=== PATIENT | female | born 1980 | race Two or more races ===

== ENCOUNTER 2016-12-24 12:10 | Inpatient (IN) | payer SELFPAY ==
[~2016-12-24] VITALS: Ht 172.7 cm; Wt 99.8 kg
[2016-12-24] MEDS ORDERED: ONDANSETRON PF 4 MG/2 ML VIAL. IV ONE (12:45)
[2016-12-24 12:58] LABS: BASO # 0.1 x10^3/uL (0.0-0.2); BASO % 1 % (0-3); EOS % 3 % (0-3); HEMATOCRIT 38.3 % (36.0-47.0); HEMOGLOBIN 12.1 g/dL (12.0-15.5); LYMPH # 1.9 x10^3/uL (1.0-4.8); LYMPH % 17 % (24-48); MEAN CORPUSCULAR HEMOGLOBIN 23 pg (25-35); MEAN CORPUSCULAR HGB CONC 32 g/dL (31-37); MEAN CORPUSCULAR VOLUME 72 fL (79-100); MONO % 5 % (0-9); NEUT % 74 % (31-73); PLATELET COUNT 287 x10^3/uL (140-400); RED BLOOD COUNT 5.36 x10^6/uL (3.50-5.40); RED CELL DISTRIBUTION WIDTH 16.7 % (11.5-14.5)
[2016-12-24 13:07] LABS: INR 1.2 (0.8-1.1); PROTHROMBIN TIME PATIENT 14.6 SEC (11.7-14.0)
--- NOTE | 2016-12-24 13:10 | EKG ---
[facility] [address] [place] [address] Test Date: 2016-12-24 Test Time: 12:22:14 Pat Name: ARELY LEAHY Department: Room: Gender: F Paradi Operator: : 1980 Requested By: SHAY GONZALES Order Number: [id number] Reading MD: Measurements Intervals [place] Rate: 83 P: 0 AL: 168 QRS: 32 QRSD: 82 T: 24 QT: 378 QTc: 445 Interpretive Statements SINUS RHYTHM NO SPECIFIC ECG ABNORMALITIES RI6.01 No previous ECG available for comparison
[2016-12-24 13:14] LABS: CALCIUM 8.8 mg/dL (8.5-10.1); CREATININE 0.6 mg/dL (0.6-1.0); GFR 114.4; POTASSIUM 3.9 mmol/L (3.5-5.1)
[2016-12-24 13:17] LABS: ALBUMIN 3.7 g/dL (3.4-5.0); TOTAL BILIRUBIN 0.6 mg/dL (0.2-1.0); TOTAL PROTEIN 7.5 g/dL (6.4-8.2)
[2016-12-24] MEDS: fentaNYL PF VIAL 100 MCG/2 ML VIAL IV PRN ×6 (13:17→21:27)
[2016-12-24 13:20] LABS: CKMB MASS 0.8 ng/mL (0.0-3.6)
--- NOTE | 2016-12-24 13:31 | RAD ---
Indication pain. Nausea vomiting. Grayscale imaging was performed. Examination was targeted to the right upper quadrant. The examination is limited secondary to patient body habitus. There is increased attenuation of the ultrasound beam by the liver compatible with fatty infiltration. A focal mass lesion is not seen in the visualized liver.. The patient was tender in the right upper quadrant during the exam (positive 's sign). There is gallbladder wall thickening and some suggested pericholecystic fluid. No definite cholelithiasis, however, was seen. The common bile duct was not identified as a discrete entity but significant intrahepatic bile duct dilatation is not suggested on this exam. The right kidney appeared grossly normal. The pancreas was largely obscured. Similarly the IVC was not well demonstrated. IMPRESSION: Limited study. There is suggested gallbladder wall thickening and some pericholecystic fluid. No definite cholelithiasis was seen. Acalculus cholecystitis is not excluded. Hepatic disease as a cause for the gallbladder wall thickening should also be considered.
[2016-12-24 13:35] LABS: BILIRUBIN,URINE NEGATIVE (NEG); GLUCOSE,URINE NEGATIVE (NEG); NITRITE,URINE NEGATIVE (NEG); PH,URINE 6.5; PROTEIN,URINE NEGATIVE (NEG-TRACE); UROBILINOGEN,URINE 0.2 mg/dL (0.2 mg/dL)
--- NOTE | 2016-12-24 13:46 | RAD ---
Portable chest, 12/24/2016: History: Epigastric pain, shortness of breath The heart is at the upper limits of normal in size. The pulmonary vascularity is normal. A small dense nodule in the right lower chest is probably a granuloma. No pulmonary infiltrates are seen. There is no evidence of pleural fluid. IMPRESSION: No acute cardiopulmonary abnormality is detected.
[2016-12-24 13:49] LABS: BACTERIA,URINE FEW /HPF (0-FEW); SQUAMOUS EPITHELIAL CELL,UR OCC /LPF
[2016-12-24 13:50] LABS: YEAST,URINE PRESENT /HPF
[2016-12-24 14:19] LABS: HYPOCHROMIA SLIGHT; MICROCYTOSIS SLIGHT; PLT ESTIMATE ADEQUATE (ADEQUATE); POLYCHROMASIA SLIGHT
[2016-12-24 14:24] VITALS: BP 122/71
--- NOTE | 2016-12-24 15:38 | PHYS DOC ---
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 It hurts to take a breath and she feels like she can't breathe. She' s had nausea, no vomiting. Denies fever or chills. She's never had pain like this before. She denies injury. Patient had surgery in [place] for "tumors", they do not know where that was, further questioning by ED nurse thought the surgery was for ovary cyst. We are unclear whether the patient had hysterectomy. She denies that. She denies history of appendectomy or cholecystectomy. The patient speaks Colombian, her daughter speaks Yoruba and translates at the bedside. PCP none Review of Systems Review of Systems Constitutional: Denies fever or chills [] Respiratory: As in history of present illness Cardiovascular: As in history of present illness GI: As in history of present illness : Denies dysuria or hematuria [] Musculoskeletal: Denies back pain or joint pain [] Integument: Denies rash or skin lesions [] Neurologic: Denies headache, focal weakness or sensory changes [] Current Medications Current Medications Current Medications Medications (Trade) Dose Ordered Sig/Gabbi Start Time Stop Time Status Last Admin Dose Admin Fentanyl Citrate (Fentanyl 2ml Vial) 50 mcg PRN Q15MIN PRN 12/24/16 12:45 12/24/16 18:38 DC 12/24/16 15:14 50 MCG Ondansetron HCl (Zofran) 4 mg 1X ONCE 12/24/16 12:45 12/24/16 12:51 DC 12/24/16 13:16 4 MG Allergies Allergies Allergies Coded Allergies Type Severity Reaction Last Updated Verified Penicillins Allergy Intermediate rash 12/24/16 Yes Physical Exam Physical Exam Constitutional: Well developed, well nourished, appears uncomfortable, tearful, clutching her epigastrium HENT: Normocephalic, atraumatic, bilateral external ears normal, oropharynx moist, no oral exudates, nose normal. [] Eyes: conjunctiva normal, no discharge. [] Neck: Normal range of motion, no stridor. [] Cardiovascular:Heart rate regular rhythm, no murmur [] Lungs & Thorax: Bilateral breath sounds clear to auscultation [] Abdomen: Epigastric and right upper quadrant tenderness to palpation. Positive 's. No palpable masses, no distention, no peritoneal signs. Skin: Warm, dry, no erythema, no rash. [] Extremities: No tenderness, no cyanosis, no clubbing, ROM intact, no edema. [] Neurologic: Alert and oriented X 3, normal motor function, normal sensory function, no focal deficits noted. [] Current Patient Data Vital Signs Vital Signs Date Time Temp Pulse Resp B/P (MAP) Pulse Ox O2 Delivery O2 Flow Rate FiO2 12/24/16 15:20 67 132/74 (93) Room Air 22.0 12/24/16 15:14 20 98 12/24/16 14:24 97.5 97.5 Lab Values Laboratory Tests Test 12/24/16 12:25 12/24/16 12:31 12/24/16 13:21 White Blood Count 11.0 x10^3/uL (4.0-11.0) Red Blood Count 5.36 x10^6/uL (3.50-5.40) Hemoglobin 12.1 g/dL (12.0-15.5) Hematocrit 38.3 % (36.0-47.0) Mean Corpuscular Volume 72 fL (79-100) L Mean Corpuscular Hemoglobin 23 pg (25-35) L Mean Corpuscular Hemoglobin Concent 32 g/dL (31-37) Red Cell Distribution Width 16.7 % (11.5-14.5) H Platelet Count 287 x10^3/uL (140-400) Neutrophils (%) (Auto) 74 % (31-73) H Lymphocytes (%) (Auto) 17 % (24-48) L Monocytes (%) (Auto) 5 % (0-9) Eosinophils (%) (Auto) 3 % (0-3) Basophils (%) (Auto) 1 % (0-3) Neutrophils # (Auto) 8.2 x10^3uL (1.8-7.7) H Lymphocytes # (Auto) 1.9 x10^3/uL (1.0-4.8) Monocytes # (Auto) 0.5 x10^3/uL (0.0-1.1) Eosinophils # (Auto) 0.4 x10^3/uL (0.0-0.7) Basophils # (Auto) 0.1 x10^3/uL (0.0-0.2) Platelet Estimate Adequate (ADEQUATE) Large Platelets Occ Polychromasia Slight Hypochromasia Slight Microcytosis Slight Prothrombin Time 14.6 SEC (11.7-14.0) H Prothrombin Time INR 1.2 (0.8-1.1) H PTT 34 SEC (24-38) Sodium Level 140 mmol/L (136-145) Potassium Level 3.9 mmol/L (3.5-5.1) Chloride Level 105 mmol/L (98-107) Carbon Dioxide Level 26 mmol/L (21-32) Anion Gap 9 (6-14) Blood Urea Nitrogen 10 mg/dL (7-20) Creatinine 0.6 mg/dL (0.6-1.0) Estimated GFR (Cockcroft-Gault) 114.4 BUN/Creatinine Ratio 17 (6-20) Glucose Level 102 mg/dL (70-99) H Calcium Level 8.8 mg/dL (8.5-10.1) Total Bilirubin 0.6 mg/dL (0.2-1.0) Aspartate Amino Transferase (AST) 34 U/L (15-37) Alanine Aminotransferase (ALT) 55 U/L (14-59) Alkaline Phosphatase 159 U/L (46-116) H Creatine Kinase 89 U/L (26-192) Creatine Kinase MB (Mass) 0.8 ng/mL (0.0-3.6) Creatine Kinase MB Relative Index 0.9 % (0-4) Troponin I Quantitative < 0.017 ng/mL (0.000-0.055) Total Protein 7.5 g/dL (6.4-8.2) Albumin 3.7 g/dL (3.4-5.0) Albumin/Globulin Ratio 1.0 (1.0-1.7) Lipase 132 U/L (73-393) POC Urine HCG, Qualitative Hcg negative (Negative) Urine Color Yellow Urine Clarity Clear Urine pH 6.5 Urine Specific [place] 1.020 Urine Protein Negative mg/dL (NEG-TRACE) Urine Glucose (UA) Negative mg/dL (NEG) Urine Ketones (Stick) Negative mg/dL (NEG) Urine Blood Large (NEG) Urine Nitrite Negative (NEG) Urine Bilirubin Negative (NEG) Urine Urobilinogen Dipstick 0.2 mg/dL (0.2 mg/dL) Urine Leukocyte Esterase Small (NEG) Urine RBC 6-10 /HPF (0-2) Urine WBC 1-4 /HPF (0-4) Urine Squamous Epithelial Cells Occ /LPF Urine Amorphous Sediment Present /HPF Urine Bacteria Few /HPF (0-FEW) Urine Yeast Present /HPF Laboratory Tests 12/24/16 12:25 Laboratory Tests 12/24/16 12:25 EKG EKG EKG read by me. Sinus rhythm. Heart rate 83. There are no acute ST or T wave changes indicative of ischemia or infarction. No STEMI. 1222 [] Radiology/Procedures Radiology/Procedures One view portable chest x-ray read by me. No acute cardiopulmonary abnormality. Ultrasound of the right upper quadrant converted by the radiologist. Gallbladder wall thickening, pericholecystic fluid, no definite stones were seen. [] Course & Med Decision Making Course & Med Decision Making Pertinent Labs and Imaging studies reviewed. (See chart for details) 36-year-old lady with one day history of epigastric pain which causes her to feel like she has trouble breathing. Her pain and exam are suspicious for biliary colic. I discussed with the patient and her daughter that we will give her some pain and nausea medications, get some labs and ultrasound, they are agreeable to that plan. Ultrasound suspicious for acute cholecystitis which I believe the patient clinically has. She is in quite a bit of pain, required several doses of IV pain medicine. I recommended admission for further evaluation and patient is agreeable to that. I spoke with Dr. Mcgee, taking calls for hospital medicine. He will admit the patient. I wrote bridge orders. [] Dragon Disclaimer Dragon Disclaimer This electronic medical record was generated, in whole or in part, using a voice recognition dictation system. Departure Departure Impression: Primary Impression: Acute cholecystitis Disposition: ADMITTED INPATIENT Admitting Physician: Senthil Mcgee Condition: STABLE Referrals: NO PCP (PCP) SHAY GONZALES MD Dec 24, 2016 15:38
--- NOTE | 2016-12-24 16:29 | PDOC2 ---
GI CONSULT Reason For Consult: Acute cholecystitis HPI: HPI: 36 y/o Lithuanian-speaking female seen in the ER w/ pending admission. History a bit difficult w/ language barrier, daughter able to translate some. Acute onset of upper abdominal pain yesterday. No previous occurrences. Associated w / nausea, no vomiting. Worse after eating and w/ deep breaths. No fever, diarrhea, or constipation. ER documentation suggests pain radiates to back. US w/ GB wall thickening and pericholecystic fluid. On IV atbx. Denies daily medication use. PMH: PMH: ovarian cystectomy Social History: Smoke: No ALCOHOL: none ROS: GEN: Denies fevers, chills, sweats HEENT: Denies blurred vision, sore throat CV: Denies chest pain RESP: +SOA GI: Per HPI : Denies hematuria, dysuria ENDO: Denies weight changes NEURO: Denies confusion, dizziness MSK: Denies weakness, joint pain/swelling SKIN: Denies jaundice, pruritus Vitals: Vitals: Vital Signs Date Time Temp Pulse Resp B/P (MAP) Pulse Ox O2 Delivery O2 Flow Rate FiO2 12/24/16 15:14 20 98 12/24/16 14:26 Room Air 12/24/16 14:20 68 111/57 (75) 12/24/16 12:25 97.9 97.9 Labs: Labs: Laboratory Tests Test 12/24/16 12:25 12/24/16 12:31 12/24/16 13:21 White Blood Count 11.0 x10^3/uL (4.0-11.0) Red Blood Count 5.36 x10^6/uL (3.50-5.40) Hemoglobin 12.1 g/dL (12.0-15.5) Hematocrit 38.3 % (36.0-47.0) Mean Corpuscular Volume 72 fL (79-100) Mean Corpuscular Hemoglobin 23 pg (25-35) Mean Corpuscular Hemoglobin Concent 32 g/dL (31-37) Red Cell Distribution Width 16.7 % (11.5-14.5) Platelet Count 287 x10^3/uL (140-400) Neutrophils (%) (Auto) 74 % (31-73) Lymphocytes (%) (Auto) 17 % (24-48) Monocytes (%) (Auto) 5 % (0-9) Eosinophils (%) (Auto) 3 % (0-3) Basophils (%) (Auto) 1 % (0-3) Neutrophils # (Auto) 8.2 x10^3uL (1.8-7.7) Lymphocytes # (Auto) 1.9 x10^3/uL (1.0-4.8) Monocytes # (Auto) 0.5 x10^3/uL (0.0-1.1) Eosinophils # (Auto) 0.4 x10^3/uL (0.0-0.7) Basophils # (Auto) 0.1 x10^3/uL (0.0-0.2) Platelet Estimate Adequate (ADEQUATE) Large Platelets Occ Polychromasia Slight Hypochromasia Slight Microcytosis Slight Prothrombin Time 14.6 SEC (11.7-14.0) Prothromb Time International Ratio 1.2 (0.8-1.1) Activated Partial Thromboplast Time 34 SEC (24-38) Sodium Level 140 mmol/L (136-145) Potassium Level 3.9 mmol/L (3.5-5.1) Chloride Level 105 mmol/L (98-107) Carbon Dioxide Level 26 mmol/L (21-32) Anion Gap 9 (6-14) Blood Urea Nitrogen 10 mg/dL (7-20) Creatinine 0.6 mg/dL (0.6-1.0) Estimated GFR (Cockcroft-Gault) 114.4 BUN/Creatinine Ratio 17 (6-20) Glucose Level 102 mg/dL (70-99) Calcium Level 8.8 mg/dL (8.5-10.1) Total Bilirubin 0.6 mg/dL (0.2-1.0) Aspartate Amino Transf (AST/SGOT) 34 U/L (15-37) Alanine Aminotransferase (ALT/SGPT) 55 U/L (14-59) Alkaline Phosphatase 159 U/L (46-116) Creatine Kinase 89 U/L (26-192) Creatine Kinase MB (Mass) 0.8 ng/mL (0.0-3.6) Creatine Kinase MB Relative Index 0.9 % (0-4) Troponin I Quantitative < 0.017 ng/mL (0.000-0.055) Total Protein 7.5 g/dL (6.4-8.2) Albumin 3.7 g/dL (3.4-5.0) Albumin/Globulin Ratio 1.0 (1.0-1.7) Lipase 132 U/L (73-393) Bedside Urine HCG, Qualitative Hcg negative (Negative) Urine Color Yellow Urine Clarity Clear Urine pH 6.5 Urine Specific [place] 1.020 Urine Protein Negative mg/dL (NEG-TRACE) Urine Glucose (UA) Negative mg/dL (NEG) Urine Ketones (Stick) Negative mg/dL (NEG) Urine Blood Large (NEG) Urine Nitrite Negative (NEG) Urine Bilirubin Negative (NEG) Urine Urobilinogen Dipstick 0.2 mg/dL (0.2 mg/dL) Urine Leukocyte Esterase Small (NEG) Urine RBC 6-10 /HPF (0-2) Urine WBC 1-4 /HPF (0-4) Urine Squamous Epithelial Cells Occ /LPF Urine Amorphous Sediment Present /HPF Urine Bacteria Few /HPF (0-FEW) Urine Yeast Present /HPF Allergies: Coded Allergies: Penicillins (Verified Allergy, Intermediate, rash, 12/24/16) Medications: Current Medications Medications (Trade) Dose Ordered Sig/Gabbi Route PRN Reason Start Time Stop Time Status Last Admin Dose Admin Fentanyl Citrate (Fentanyl 2ml Vial) 50 mcg PRN Q15MIN PRN IV PAIN GREATER THAN 3/10 12/24/16 12:45 12/25/16 12:44 12/24/16 15:14 Ondansetron HCl (Zofran) 4 mg 1X ONCE IV 12/24/16 12:45 12/24/16 12:51 DC 12/24/16 13:16 Levofloxacin/ Dextrose 150 ml @ 100 mls/hr 1X ONCE IV 12/24/16 16:00 12/24/16 17:29 12/24/16 16:09 Imaging: Imaging: RUQ US 12/24/16 IMPRESSION: Limited study. There is suggested gallbladder wall thickening and some pericholecystic fluid. No definite cholelithiasis was seen. Acalculus cholecystitis is not excluded. Hepatic disease as a cause for the gallbladder wall thickening should also be considered. CXR 12/24/16 IMPRESSION: No acute cardiopulmonary abnormality is detected. PE: GEN: NAD HEENT: Atraumatic, PERRL LUNGS: CTAB anteriorly HEART: RRR ABD: epigastric to RUQ, some to LUQ, BS+, obese EXTREMITY: No edema SKIN: vertical scar below umbilicus NEURO/PSYCH: A & O 3 A/P: A/P: Upper abd pain and nausea -acute onset yesterday, worse w/ eating and deep breaths Abnormal abd US -gallbladder wall thickening and some pericholecystic fluid -LFTs and lipase okay except for mildly elevated Alk Phos -- Check PIPIDA w/o EF and consult surgery. WILLIAM ALCANTAR Dec 24, 2016 16:29
[2016-12-24 19:00] VITALS: BP 128/72
[2016-12-24] MEDS: AMINO AC 3%/ELECTROLYTE/GLYCER 1,000 ML IV SCH (19:42)
--- NOTE | 2016-12-24 21:48 | HP ---
ADMIT DATE: 12/24/2016 CHIEF COMPLAINT: Abdominal pain. HISTORY OF PRESENT ILLNESS: The patient is a pleasant 36-year-old female who presented with abdominal pain. We did some imaging. She has cholecystitis. We suspect this is from gallstones. I discussed the case with the ER physician. The patient is rating her pain at 9/10. She has associated nausea. We are going to admit the patient and consult Dr. Muro. PAST MEDICAL HISTORY: Overweight. ALLERGIES: None. FAMILY HISTORY: Hypertension. SOCIAL HISTORY: She does not drink, smoke or take drugs. MEDICATIONS: Reviewed, please refer to the MRAD. REVIEW OF SYSTEMS: GENERAL: No history of weight change, weakness or fevers. SKIN: No bruising, hair changes or rashes. EYES: No blurred, double or loss of vision. NOSE AND THROAT: No history of nosebleeds, hoarseness or sore throat. HEART: No history of palpitations, chest pain or shortness of breath on exertion. LUNGS: Denies cough, hemoptysis, wheezing or shortness of breath. GASTROINTESTINAL: She complains of abdominal pain. GENITOURINARY: No history of frequency, urgency, hesitancy or nocturia. NEUROLOGIC: Denies history of numbness, tingling, tremor or weakness. PSYCHIATRIC: No history of panic, anxiety or depression. ENDOCRINE: No history of heat or cold intolerance, polyuria or polydipsia. EXTREMITIES: Denies muscle weakness, joint pain, pain on walking or stiffness. PHYSICAL EXAMINATION: VITAL SIGNS: Temperature afebrile, pulse 67, respirations 18, blood pressure 144/90. GENERAL: She is alert, cooperative. Her family is present. HEART: Normal S1, S2. LUNGS: Clear. ABDOMEN: Soft. Decreased bowel sounds, tender in the epigastrium. EXTREMITIES: No edema. SKIN: No rashes. PSYCHIATRIC: She is anxious. VASCULAR: Good capillary refill. ENDOCRINE: No thyromegaly. LYMPHATICS: No cervical nodes. HEMATOPOIETIC: No bruising. LABORATORY DATA: Reviewed. ASSESSMENT AND PLAN: Symptomatic gallstones with cholecystitis. The patient has been admitted, will consult Dr. Muro. IV Levaquin, p.r.n. narcotics. We ordered a combination of Lortab and fentanyl, Procalamine at 75 an hour, frequent labs. PROGNOSIS: Guarded. NIAL Milton CHERY DO DR: Carlos JOB#: [id number] / [id number]
--- NOTE | 2016-12-24 22:05 | RAD ---
Hepatobiliary scan dated 12/24/2016. No comparison available. CLINICAL INDICATION: Mid abdominal pain. FINDINGS: Dedicated hepatobiliary scan performed after the administration of 5.0 mCi of technetium 99m Choletec. Imaging acquired at 5 minute frames for total of 60 minutes. Prompt uptake of tracer throughout the hepatic parenchyma on the initial frame. Biliary tree is visualized at 6 minutes. There is emptying into proximal small bowel loops at 10 minutes. The gallbladder is not definitely visualized. There is some tracer accumulation near the chelsey hepatis on the final images which probably represents reflux into proximal duodenum. IMPRESSION: 1. Gallbladder is not clearly identified, nonspecific. Although this could represent acute cholecystitis, contracted gallbladder or gallbladder filled with stones or sludge are also possible. Recommend correlation with ultrasound. If indicated, delayed imaging could be performed. Electronically signed by: Cameron Marques MD (12/24/2016 10:03 PM)
[2016-12-24 23:00] VITALS: BP 104/62
[2016-12-25] VITALS (16 sets, daily range): BP systolic 86–121; BP diastolic 47–74
[2016-12-25] MEDS: fentaNYL PF VIAL 100 MCG/2 ML VIAL IV PRN (08:48)
[2016-12-25] MEDS: AMINO AC 3%/ELECTROLYTE/GLYCER 1,000 ML IV SCH ×2 (08:48→20:15)
[2016-12-25] MEDS: HYDROcodone/APAP 5/325MG 1 TAB TABLET PO PRN ×3 (09:39→23:05)
[2016-12-25] MEDS ORDERED: DEXAMETHASONE SOD PHOS 20 MG/5 ML VIAL. ONE (10:21)
[2016-12-25] MEDS ORDERED: MIDAZOLAM HCL/PF 2 MG/2 ML VIAL. ONE (10:21)
[2016-12-25] MEDS ORDERED: KETOROLAC 30 MG/ML INJ FOR OR. INJ ONE ×2 (10:21→12:19)
[2016-12-25] MEDS ORDERED: fentaNYL PF VIAL 100 MCG/2 ML VIAL ONE ×2 (10:21→12:02)
[2016-12-25] MEDS ORDERED: LIDOCAINE 2% PF Vial for OR 5 ML VIAL. ONE (10:21)
[2016-12-25] MEDS ORDERED: PROPOFOL 20 ML IV ONE (10:21)
[2016-12-25] MEDS ORDERED: ONDANSETRON PF 4 MG/2 ML VIAL. ONE (10:21)
[2016-12-25] MEDS ORDERED: SUCCINYLCHOLINE 200 MG/10 ML VIAL. ONE (10:22)
[2016-12-25] MEDS ORDERED: ROCURONIUM 50 MG/5 ML VIAL. ONE (10:22)
[2016-12-25] MEDS ORDERED: SURGICEL HEMOSTAT 4X8 EACH. ONE (10:26)
[2016-12-25] MEDS ORDERED: IOHEXOL 300 MG/ML 50 ML VIAL. ONE (10:26)
[2016-12-25] MEDS ORDERED: BUPIVACAINE-EPI 0.5%-1:200000 50 ML VIAL. ONE (10:27)
--- NOTE | 2016-12-25 10:59 | PDOC ---
Provider Note Provider Note #[id number]--[id number]. lap radha, roxanna poss open today. r/b d/w pt using interpretor phone. KAYLAN ALVA MD Dec 25, 2016 10:59
[2016-12-25] MEDS ORDERED: HYDROmorphone 2 MG/ML VIAL IV PRN ×2 (11:00→12:30)
[2016-12-25] MEDS ORDERED: LIDOCAINE 1% 1 ML SYRINGE. ID PRN ×2 (11:00→12:30)
[2016-12-25] MEDS ORDERED: MORPHINE SULFATE 2 MG/ML DISP.SYRIN. IV PRN ×2 (11:00→12:30)
[2016-12-25] MEDS ORDERED: IV RINGERS,LACTATED 1000ML 1,000 ML IV SCH ×2 (11:00→12:28)
[2016-12-25] MEDS ORDERED: PROCHLORPERAZINE 10 MG/2 ML VIAL. IV PRN ×2 (11:00→12:30)
[2016-12-25] MEDS ORDERED: fentaNYL PF VIAL 100 MCG/2 ML VIAL IV PRN ×4 (11:00→12:30)
[2016-12-25] MEDS ORDERED: FAMOTIDINE 20 MG/2 ML VIAL ONE (11:35)
[2016-12-25] MEDS ORDERED: NEOSTIGMINE METHYLSULFATE 5 MG/5 ML SYRINGE. ONE (12:03)
[2016-12-25] MEDS ORDERED: GLYCOPYRROLATE 1 MG/5 ML VIAL. ONE (12:03)
[2016-12-25] MEDS ORDERED: DESFLURANE 61 TO 120 MINUTES IH ONE (12:19)
--- NOTE | 2016-12-25 12:28 | PDOC ---
BRIEF OPERATIVE NOTE Pre-Op Diagnosis cholecystitis lap radha geta ebl 10 ivf 900 leon well to rr stable. KAYLAN ALVA MD Dec 25, 2016 12:28
[2016-12-25] MEDS ORDERED: ONDANSETRON PF 4 MG/2 ML VIAL. IV PRN (12:30)
[2016-12-25] MEDS ORDERED: ACETAMINOPHEN 500 MG TABLET PO PRN (12:30)
--- NOTE | 2016-12-25 12:52 | PDOC ---
PROGRESS NOTES Chief Complaint Chief Complaint 1. CHolecystitis History of Present Illness History of Present Illness Out having lap radha Vitals Vitals Vital Signs Date Time Temp Pulse Resp B/P (MAP) Pulse Ox O2 Delivery O2 Flow Rate FiO2 12/25/16 12:41 88 18 132/75 99 Simple Mask 5 12/25/16 12:26 97.9 97.9 Labs LABS Laboratory Tests Test 12/24/16 13:21 Urine Color Yellow Urine Clarity Clear Urine pH 6.5 Urine Specific [place] 1.020 Urine Protein Negative mg/dL (NEG-TRACE) Urine Glucose (UA) Negative mg/dL (NEG) Urine Ketones (Stick) Negative mg/dL (NEG) Urine Blood Large (NEG) Urine Nitrite Negative (NEG) Urine Bilirubin Negative (NEG) Urine Urobilinogen Dipstick 0.2 mg/dL (0.2 mg/dL) Urine Leukocyte Esterase Small (NEG) Urine RBC 6-10 /HPF (0-2) Urine WBC 1-4 /HPF (0-4) Urine Squamous Epithelial Cells Occ /LPF Urine Amorphous Sediment Present /HPF Urine Bacteria Few /HPF (0-FEW) Urine Yeast Present /HPF Review of Systems Review of Systems out having sx Assessment and Plan Assessmemt and Plan Problems Medical Problems: (1) Acute cholecystitis Status: Acute Problems: Comment Review of Relevant I have reviewed the following items charlie (where applicable) has been applied. Labs Laboratory Tests Test 12/24/16 12:25 12/24/16 12:31 12/24/16 13:21 White Blood Count 11.0 x10^3/uL (4.0-11.0) Red Blood Count 5.36 x10^6/uL (3.50-5.40) Hemoglobin 12.1 g/dL (12.0-15.5) Hematocrit 38.3 % (36.0-47.0) Mean Corpuscular Volume 72 fL (79-100) Mean Corpuscular Hemoglobin 23 pg (25-35) Mean Corpuscular Hemoglobin Concent 32 g/dL (31-37) Red Cell Distribution Width 16.7 % (11.5-14.5) Platelet Count 287 x10^3/uL (140-400) Neutrophils (%) (Auto) 74 % (31-73) Lymphocytes (%) (Auto) 17 % (24-48) Monocytes (%) (Auto) 5 % (0-9) Eosinophils (%) (Auto) 3 % (0-3) Basophils (%) (Auto) 1 % (0-3) Neutrophils # (Auto) 8.2 x10^3uL (1.8-7.7) Lymphocytes # (Auto) 1.9 x10^3/uL (1.0-4.8) Monocytes # (Auto) 0.5 x10^3/uL (0.0-1.1) Eosinophils # (Auto) 0.4 x10^3/uL (0.0-0.7) Basophils # (Auto) 0.1 x10^3/uL (0.0-0.2) Platelet Estimate Adequate (ADEQUATE) Large Platelets Occ Polychromasia Slight Hypochromasia Slight Microcytosis Slight Prothrombin Time 14.6 SEC (11.7-14.0) Prothromb Time International Ratio 1.2 (0.8-1.1) Activated Partial Thromboplast Time 34 SEC (24-38) Sodium Level 140 mmol/L (136-145) Potassium Level 3.9 mmol/L (3.5-5.1) Chloride Level 105 mmol/L (98-107) Carbon Dioxide Level 26 mmol/L (21-32) Anion Gap 9 (6-14) Blood Urea Nitrogen 10 mg/dL (7-20) Creatinine 0.6 mg/dL (0.6-1.0) Estimated GFR (Cockcroft-Gault) 114.4 BUN/Creatinine Ratio 17 (6-20) Glucose Level 102 mg/dL (70-99) Calcium Level 8.8 mg/dL (8.5-10.1) Total Bilirubin 0.6 mg/dL (0.2-1.0) Aspartate Amino Transf (AST/SGOT) 34 U/L (15-37) Alanine Aminotransferase (ALT/SGPT) 55 U/L (14-59) Alkaline Phosphatase 159 U/L (46-116) Creatine Kinase 89 U/L (26-192) Creatine Kinase MB (Mass) 0.8 ng/mL (0.0-3.6) Creatine Kinase MB Relative Index 0.9 % (0-4) Troponin I Quantitative < 0.017 ng/mL (0.000-0.055) Total Protein 7.5 g/dL (6.4-8.2) Albumin 3.7 g/dL (3.4-5.0) Albumin/Globulin Ratio 1.0 (1.0-1.7) Lipase 132 U/L (73-393) Bedside Urine HCG, Qualitative Hcg negative (Negative) Urine Color Yellow Urine Clarity Clear Urine pH 6.5 Urine Specific [place] 1.020 Urine Protein Negative mg/dL (NEG-TRACE) Urine Glucose (UA) Negative mg/dL (NEG) Urine Ketones (Stick) Negative mg/dL (NEG) Urine Blood Large (NEG) Urine Nitrite Negative (NEG) Urine Bilirubin Negative (NEG) Urine Urobilinogen Dipstick 0.2 mg/dL (0.2 mg/dL) Urine Leukocyte Esterase Small (NEG) Urine RBC 6-10 /HPF (0-2) Urine WBC 1-4 /HPF (0-4) Urine Squamous Epithelial Cells Occ /LPF Urine Amorphous Sediment Present /HPF Urine Bacteria Few /HPF (0-FEW) Urine Yeast Present /HPF Laboratory Tests Test 12/24/16 13:21 Urine Color Yellow Urine Clarity Clear Urine pH 6.5 Urine Specific [place] 1.020 Urine Protein Negative mg/dL (NEG-TRACE) Urine Glucose (UA) Negative mg/dL (NEG) Urine Ketones (Stick) Negative mg/dL (NEG) Urine Blood Large (NEG) Urine Nitrite Negative (NEG) Urine Bilirubin Negative (NEG) Urine Urobilinogen Dipstick 0.2 mg/dL (0.2 mg/dL) Urine Leukocyte Esterase Small (NEG) Urine RBC 6-10 /HPF (0-2) Urine WBC 1-4 /HPF (0-4) Urine Squamous Epithelial Cells Occ /LPF Urine Amorphous Sediment Present /HPF Urine Bacteria Few /HPF (0-FEW) Urine Yeast Present /HPF Medications Current Medications Fentanyl Citrate (Fentanyl 2ml Vial) 50 mcg PRN Q15MIN PRN IV PAIN GREATER THAN 3/10 Last administered on 12/24/16 15:14; Start 12/24/16 at 12:45; Stop at 18:38; Status DC Ondansetron HCl (Zofran) 4 mg 1X ONCE IV Last administered on 12/24/16 13:16 ; Start 12/24/16 at 12:45; Stop 12/24/16 at 12:51; Status DC Levofloxacin/ Dextrose 150 ml @ 100 mls/hr 1X ONCE IV Last administered on 16:09; Start 12/24/16 at 16:00; Stop 12/24/16 at 17:29; Status DC Fentanyl Citrate (Fentanyl 2ml Vial) 50 mcg PRN Q2HR PRN IV PAIN Last administered on 12/25/16 08:48; Start 12/24/16 at 18:30 Acetaminophen/ Hydrocodone Bitart (Lortab 5/325) 1 tab PRN Q4HRS PRN PO PAIN Last administered on 12/25/16 09:39; Start 12/24/16 at 18:30 Amino Acids/ Glycerin/ Electrolytes 1,000 ml @ 80 mls/hr [id number] IV Last administered on 12/25/16 08:48; Start 12/24/16 at 19:15 Levofloxacin/ Dextrose 150 ml @ 100 mls/hr Q24H IV ; Start 12/25/16 at 16:00 Dexamethasone Sodium Phosphate (Decadron) 20 mg STK-MED ONCE .ROUTE ; Start at 10:21; Stop 12/25/16 at 10:22; Status DC Ondansetron HCl (Zofran) 4 mg STK-MED ONCE .ROUTE ; Start 12/25/16 at 10:21; Stop 12/25/16 at 10:22; Status DC Propofol 20 ml @ As Directed STK-MED ONCE IV ; Start 12/25/16 at 10:21; Stop at 10:22; Status DC Lidocaine HCl (Lidocaine Pf 2% Vial) 5 ml STK-MED ONCE .ROUTE ; Start 12/25/16 at 10:21; Stop 12/25/16 at 10:22; Status DC Ketorolac Tromethamine (Toradol For Or Only) 30 mg STK-MED ONCE INJ ; Start at 10:21; Stop 12/25/16 at 10:22; Status DC Midazolam HCl (Versed) 2 mg STK-MED ONCE .ROUTE ; Start 12/25/16 at 10:21; Stop 12/25/16 at 10:22; Status DC Fentanyl Citrate (Fentanyl 2ml Vial) 100 mcg STK-MED ONCE .ROUTE ; Start at 10:21; Stop 12/25/16 at 10:22; Status DC Succinylcholine Chloride (Anectine) 200 mg STK-MED ONCE .ROUTE ; Start 12/25/16 at 10:22; Stop 12/25/16 at 10:23; Status DC Rocuronium [place] (Zemuron) 50 mg STK-MED ONCE .ROUTE ; Start 12/25/16 at 10:22 ; Stop 12/25/16 at 10:23; Status DC Cellulose 1 each STK-MED ONCE .ROUTE ; Start 12/25/16 at 10:26; Stop 12/25/16 at 10:27; Status DC Iohexol (Omnipaque 300 Mg/ml) 50 ml STK-MED ONCE .ROUTE ; Start 12/25/16 at 10: 26; Stop 12/25/16 at 10:27; Status DC Bupivacaine HCl/ Epinephrine Bitart (Marcaine-Epi 0.5%-[id number]) 50 ml STK-MED ONCE .ROUTE Last administered on 12/25/16 11:37; Start 12/25/16 at 10:27; Stop 12/25/16 at 10:28; Status DC Fentanyl Citrate (Fentanyl 2ml Vial) 25 mcg PRN Q5MIN PRN IV MILD PAIN; Start 12/25/16 at 11:00; Stop 12/26/16 at 10:59 Fentanyl Citrate (Fentanyl 2ml Vial) 50 mcg PRN Q5MIN PRN IV MODERATE PAIN; Start 12/25/16 at 11:00; Stop 12/26/16 at 10:59 Morphine Sulfate 1 mg PRN Q10MIN PRN IV SEVERE PAIN; Start 12/25/16 at 11:00; Stop 12/26/16 at 10:59 Ringer's Solution 1,000 ml @ 30 mls/hr Q24H IV Last administered on 12/25/16 11:09; Start 12/25/16 at 11:00; Stop 12/25/16 at 22:59 Lidocaine HCl 2 ml PRN 1X PRN ID PRIOR TO IV START; Start 12/25/16 at 11:00; Stop 12/26/16 at 10:59 Hydromorphone HCl (Dilaudid) 0.5 mg PRN Q10MIN PRN IV SEV PAIN, Second choice; Start 12/25/16 at 11:00; Stop 12/26/16 at 10:59 Prochlorperazine Edisylate (Compazine) 5 mg PACU PRN PRN IV NAUSEA, MRX1; Start 12/25/16 at 11:00; Stop 12/26/16 at 10:59 Cefazolin Sodium/ Dextrose 50 ml @ As Directed STK-MED ONCE IV ; Start 12/25/16 at 11:32; Stop 12/25/16 at 11:33; Status DC Famotidine (Pepcid) 20 mg STK-MED ONCE .ROUTE ; Start 12/25/16 at 11:35; Stop at 11:36; Status DC Fentanyl Citrate (Fentanyl 2ml Vial) 100 mcg STK-MED ONCE .ROUTE ; Start at 12:02; Stop 12/25/16 at 12:03; Status DC Glycopyrrolate (Robinul) 1 mg STK-MED ONCE .ROUTE ; Start 12/25/16 at 12:03; Stop 12/25/16 at 12:04; Status DC Neostigmine Methylsulfate 5 mg STK-MED ONCE .ROUTE ; Start 12/25/16 at 12:03; Stop 12/25/16 at 12:04; Status DC Ondansetron HCl (Zofran) 4 mg PRN Q6HRS PRN IV NAUSEA/VOMITING; Start 12/25/16 at 12:30 Acetaminophen (Tylenol) 500 mg PRN Q6HRS PRN PO MILD PAIN / TEMP; Start at 12:30 Ketorolac Tromethamine (Toradol For Or Only) 30 mg STK-MED ONCE INJ ; Start at 12:19; Stop 12/25/16 at 12:20; Status DC Desflurane (Suprane) 60 ml STK-MED ONCE IH ; Start 12/25/16 at 12:19; Stop 12/25 at 12:20; Status DC Oxycodone/ Acetaminophen (Percocet 5/325) 2 tab PRN Q4HRS PRN PO PAIN; Start at 12:30 Fentanyl Citrate (Fentanyl 2ml Vial) 25 mcg PRN Q5MIN PRN IV MILD PAIN; Start 12/25/16 at 12:30; Stop 12/26/16 at 12:29 Fentanyl Citrate (Fentanyl 2ml Vial) 50 mcg PRN Q5MIN PRN IV MODERATE PAIN; Start 12/25/16 at 12:30; Stop 12/26/16 at 12:29 Morphine Sulfate 1 mg PRN Q10MIN PRN IV SEVERE PAIN; Start 12/25/16 at 12:30; Stop 12/26/16 at 12:29 Ringer's Solution 1,000 ml @ 30 mls/hr Q24H IV ; Start 12/25/16 at 12:28; Stop 12/26/16 at 00:27 Lidocaine HCl 2 ml PRN 1X PRN ID PRIOR TO IV START; Start 12/25/16 at 12:30; Stop 12/26/16 at 12:29 Hydromorphone HCl (Dilaudid) 0.5 mg PRN Q10MIN PRN IV SEV PAIN, Second choice; Start 12/25/16 at 12:30; Stop 12/26/16 at 12:29 Prochlorperazine Edisylate (Compazine) 5 mg PACU PRN PRN IV NAUSEA, MRX1; Start 12/25/16 at 12:30; Stop 12/26/16 at 12:29 Active Scripts Active Reported No Known Medications Prior To Admisstion (Info) Each 1 Each Vitals/I & O Vital Sign - Last 24 Hours 12/24/16 12/24/16 12/24/16 12/24/16 13:17 13:40 13:50 13:50 Pulse 72 68 Resp 24 26 B/P (MAP) 128/70 (89) 113/60 (77) Pulse Ox 98 96 98 97 O2 Delivery Room Air Room Air Room Air 12/24/16 12/24/16 12/24/16 12/24/16 14:00 14:20 14:24 14:26 Temp 97.5 97.5 Pulse 68 76 Resp 26 24 18 24 B/P (MAP) 111/57 (75) 122/71 (88) Pulse Ox 97 95 97 97 O2 Delivery Room Air Room Air Room Air Room Air 12/24/16 12/24/16 12/24/16 12/24/16 14:50 15:14 15:20 15:50 Pulse 66 67 72 Resp 24 20 22 B/P (MAP) 118/68 (85) 132/74 (93) 108/61 (77) Pulse Ox 90 98 93 O2 Delivery Room Air Room Air Room Air O2 Flow Rate 22.0 12/24/16 12/24/16 12/24/16 12/24/16 16:20 16:50 17:57 18:32 Pulse 66 72 Resp 24 16 B/P (MAP) 132/74 (93) 114/56 (75) Pulse Ox 99 99 O2 Delivery Room Air Room Air Room Air Room Air 12/24/16 12/24/16 12/24/16 12/24/16 19:00 19:49 21:27 21:57 Temp 96.4 96.4 Pulse 72 Resp 20 20 18 B/P (MAP) 128/72 (90) Pulse Ox 97 O2 Delivery Room Air Room Air Room Air Room Air 12/24/16 12/25/16 12/25/16 12/25/16 23:00 03:00 07:00 07:24 Temp 97.9 98.2 100.9 100.9 97.9 98.2 100.9 100.9 Pulse 79 83 108 108 Resp 28 B/P (MAP) 104/62 (76) 107/68 (81) 121/65 (83) 121/65 (83) Pulse Ox 94 90 94 94 O2 Delivery Room Air Room Air Room Air Room Air 12/25/16 12/25/16 12/25/16 12/25/16 10:45 11:05 12:26 12:26 Temp 98.1 97.9 97.9 98.1 97.9 97.9 Pulse 56 94 97 Resp 18 18 B/P (MAP) 93/55 (68) 123/74 143/76 Pulse Ox 95 94 98 O2 Delivery Room Air Room Air Simple Mask Mask O2 Flow Rate 5 5 12/25/16 12:41 Pulse 88 Resp 18 B/P (MAP) 132/75 Pulse Ox 99 O2 Delivery Simple Mask O2 Flow Rate 5 Intake and Output 12/24/16 12/24/16 12/25/16 15:00 23:00 07:00 Intake Total 450 ml Balance 450 ml KAMILLA REIS MD Dec 25, 2016 12:52
[2016-12-25] MEDS: oxyCODONE/APAP 5/325 1 TAB TABLET PO PRN (13:40)
--- NOTE | 2016-12-25 14:51 | OP ---
DATE OF SURGERY: 12/25/2016 PREOPERATIVE DIAGNOSIS: Cholecystitis. POSTOPERATIVE DIAGNOSIS: Cholecystitis. PROCEDURE: Laparoscopic cholecystectomy. SURGEON: Kaylan Alva M.D. ANESTHESIA: General. ESTIMATED BLOOD LOSS: 10 mL. INTRAVENOUS FLUIDS: 900 mL. INDICATIONS: The patient is a 36-year-old female who presents with acute cholecystitis. FINDINGS: Intraoperative cholangiogram is unable to be performed because the cystic duct was very small and the catheter would not thread. DESCRIPTION OF PROCEDURE: After informed consent was obtained, the patient was taken to the operating room and placed in supine position. After adequate induction of general anesthesia, she was prepped and draped in usual sterile fashion. A supraumbilical skin incision was made with a scalpel, subcutaneous tissues with a hemostat. [facility] was used to grab the fascia and lift it anteriorly. Veress was used to gain access to the peritoneal cavity. Low opening pressures confirmed intraperitoneal placement of Veress. Pneumoperitoneum to 15 mmHg was established followed by placement of 5 mm port. A 5 mm 30 degree lens was inserted, which revealed good port placement. No evidence of entry trauma. She was placed head up, rotated towards her left. Three additional ports were placed under direct vision, one was an epigastric 11 mm port and two were 5 mm right lateral ports. The patient was quite obese with a very enlarged liver. It made it difficult to expose the gallbladder. The fundus of the gallbladder was retracted over the liver and slightly towards the right. The infundibulum was retracted towards the right and towards her toes to open triangle of [place]. The leading peritoneal edge was scored at the level of the infundibulum with cautery and carried back towards the liver, both medial and laterally. [place] dissector was used to dissect out the triangle of [place]. At the completion of dissection, the gallbladder had been dissected away from the cystic plate. The liver could be seen behind the gallbladder. Two structures were seen leading directly to the gallbladder, one was the cystic artery and one was the cystic duct. The base of the gallbladder was free of extraneous tissue. Two clips were placed on cystic artery proximally, one distally and the artery divided sharply. A clip was placed on the small cystic duct adjacent to the gallbladder. Ductotomy was made with scissors. Intraoperative cholangiogram was attempted but the catheter would not pass. Three clips were placed on the cystic duct, distal to the ductotomy. Ductotomy completed with scissors. The gallbladder was removed from the bed of liver with cautery and was placed in a laparoscopic bag and brought out through the epigastric incision. The right upper quadrant was irrigated. Irrigant returned clear. There was no bleeding or bile leakage noted. Fascial closure device was used to close the fascia at the epigastric incision using 0 Vicryl suture. The one final look at the right upper quadrant revealed it to continue to be hemostatic. The ports were removed under direct vision. They were hemostatic. Pneumoperitoneum was desufflated. Skin incisions were closed with 4-0 Monocryl in subcuticular fashion. Additional local was injected. Sterile dressings were placed. She tolerated the procedure well. There were no apparent complications. She was then transferred in stable condition to the recovery room. KAYLAN ALVA MD DR: OLEG/david JOB#: [id number] / [id number] GUSTAVO
--- NOTE | 2016-12-25 22:44 | CONS ---
DATE OF CONSULTATION: 12/25/2016 Of note, since the patient has been in the hospital, she has given different hospital staff members three different dates. When the OR staff came to take her down to preop holding today and tried to verify her date, the date that she gave them was different than the one that was on her arm band. She subsequently denied having any identification on her, she said her ID was with her . We tried to call the to verify her birthday. He did not answer the phone. I tried to call her preferred pharmacy to verify her birthday and the pharmacy put me on hold for an extended period of time. During this time the patient was not taken down from her hospital room to preoperative holding and then she did finally produce her identification documents from [place] despite previously having told us that she had no ID on her. She did produce her documents from [place] that demonstrated that her birthday is 1980. There is a color picture on these documents that matches the face of the patient. I used the oncology nurse navigator phone for my entire visit. CHIEF COMPLAINT: Abdominal pain. HISTORY OF PRESENT ILLNESS: The patient is a 36-year-old female who presents with epigastric and upper abdominal pain since . She says the pain is severe. It is a very heavy type of pain. It is exacerbated if she takes a deep breath. It has radiated to her back at times. She has had similar pain in the past, but not as severe. She has no nausea at this time. No vomiting at this time. Her pain is not improving. PAST MEDICAL HISTORY: She denies. PAST SURGICAL HISTORY: She had 2 previous laparotomies for what sounds like ovarian cyst. MEDICATIONS AT HOME: Denies. ALLERGIES: PENICILLIN. SOCIAL HISTORY: Denies smoking, denies drinking. FAMILY HISTORY: Noncontributory to this illness. REVIEW OF SYSTEMS: CONSTITUTIONAL: Complains of being hot at this time. Denies chills. EYES: Denies abrupt loss of vision or double vision. EARS, NOSE, MOUTH AND THROAT: Denies loss of hearing or ringing in her ears. CARDIOVASCULAR: Denies chest pain or heart palpitations. RESPIRATORY: Denies cough, shortness of breath. GASTROINTESTINAL: See HPI. GENITOURINARY: No dysuria or hematuria. HEMATOLOGIC: Denies unusual bleeding or bruising. MUSCULOSKELETAL: Denies new myalgias or arthralgias. DERMATOLOGIC: Denies new skin rashes or lesions. PSYCHIATRIC: Denies depression or anxiety. NEUROLOGIC: She has occasional headaches that she considers normal. She has no seizures. PHYSICAL EXAMINATION: GENERAL: This is an obese female with a BMI of 33.5 who appears sweaty and as if she does not feel well, but she is in no acute distress. VITAL SIGNS: She is febrile with a temperature of 100.9, respiratory rate 28, heart rate 108, blood pressure 121/65. O2 sats 94% on room air. EYES: Pupils are round and reactive. Sclerae are nonicteric. HEENT: Head is atraumatic. Mucous membranes are moist. Face symmetric. NECK: Supple without cervical lymphadenopathy, no supraclavicular lymphadenopathy. Neck is nontender without masses. CARDIOVASCULAR: Palpation of her right radial pulse, she has a tachycardic rate. She has no pedal edema. She has a 2+ right radial pulse. RESPIRATORY: Chest wall is nontender to palpation. Respirations are nonlabored. ABDOMEN: Soft, nondistended. She is tender focally in the right upper quadrant with a 's sign. She has a midline incision that goes up to her umbilicus consistent with previous laparotomy. DERMATOLOGIC: Exposed portions of her skin are unremarkable. PSYCHIATRIC: She is cooperative with appropriate mood and affect. NEUROLOGIC: She has no resting tremor. She can move all 4 extremities without difficulty. LABORATORY DATA: Reviewed. Her white count from yesterday was normal, platelet count was normal. Her LFTs yesterday were normal with the exception of alkaline phosphatase that was mildly elevated at 159. Imaging was noted. Ultrasound showed a suggestive thickened gallbladder wall and some pericholecystic fluid, but no definite cholelithiasis. Acalculous cholecystitis versus hepatic disease were listed as possible etiologies. She had a PIPIDA scan yesterday that shows the gallbladder was not clearly identified and could represent acalculous cholecystitis. ASSESSMENT: 1. Acute acalculous cholecystitis. 2. Obesity. PLAN: The patient is being taken to the operating room for laparoscopic cholecystectomy, intraoperative cholangiogram, possible open. I used the oncology nurse navigator phone for the visit including describing the risks of surgery. I used a drawing to help facilitate the discussion. We discussed the risk of bleeding, infection, postoperative diarrhea, injury to intra-abdominal structures including hollow viscus bile duct or arterial structures and bile leak. Questions are answered. She desires to proceed with the procedure. We discussed that the procedure could require conversion to open. KAYLAN ALVA MD DR: OLEG/david JOB#: [id number] / [id number] GUSTAVO
[2016-12-26] MEDS: oxyCODONE/APAP 5/325 1 TAB TABLET PO PRN ×2 (00:17→06:17)
[2016-12-26 00:20] VITALS: BP 90/48
[2016-12-26 03:15] VITALS: BP 83/40
--- NOTE | 2016-12-26 04:44 | CONS ---
DATE OF CONSULTATION: I used the gin feeder for the entire visit. Also, what is confusing is that she has given different members of the hospital staff 3 different birthdates since admission to the hospital. Still remains unclear as to what her actual birthdate is. She says she has no identification. DICTATION ENDS HERE THE DICTATION SYSTEM CUT OFF, SO I DICTATED AGAIN. DISREGARD THIS NOTE. KAYLAN ALVA MD DR: OLEG/david JOB#: [id number] / [id number] GUSTAVO
[2016-12-26 07:00] VITALS: BP 91/55
[2016-12-26] MEDS: AMINO AC 3%/ELECTROLYTE/GLYCER 1,000 ML IV SCH (08:45)
[2016-12-26] MEDS ORDERED: LEVO500T59 PO (10:00)
--- NOTE | 2016-12-26 10:03 | PDOC3 ---
Discharge Summary Visit Information Date of Admission: Dec 24, 2016 Date of Discharge: Dec 26, 2016 Admitting Diagnosis Comment: 1. CHolecystitis s/p lap radha Obesity Final Diagnosis Problems Medical Problems: (1) Acute cholecystitis Status: Acute Brief Hospital Course Allergies Allergies Coded Allergies Type Severity Reaction Last Updated Verified Penicillins Allergy Intermediate rash 12/25/16 Yes Vital Signs Vital Signs Date Time Temp Pulse Resp B/P (MAP) Pulse Ox O2 Delivery O2 Flow Rate FiO2 12/26/16 07:30 Room Air 12/26/16 07:00 97.7 62 20 91/55 (67) 96 98.0 97.7 Lab Results Laboratory Tests Test 12/24/16 12:25 12/24/16 12:31 12/24/16 13:21 White Blood Count 11.0 x10^3/uL (4.0-11.0) Red Blood Count 5.36 x10^6/uL (3.50-5.40) Hemoglobin 12.1 g/dL (12.0-15.5) Hematocrit 38.3 % (36.0-47.0) Mean Corpuscular Volume 72 fL (79-100) Mean Corpuscular Hemoglobin 23 pg (25-35) Mean Corpuscular Hemoglobin Concent 32 g/dL (31-37) Red Cell Distribution Width 16.7 % (11.5-14.5) Platelet Count 287 x10^3/uL (140-400) Neutrophils (%) (Auto) 74 % (31-73) Lymphocytes (%) (Auto) 17 % (24-48) Monocytes (%) (Auto) 5 % (0-9) Eosinophils (%) (Auto) 3 % (0-3) Basophils (%) (Auto) 1 % (0-3) Neutrophils # (Auto) 8.2 x10^3uL (1.8-7.7) Lymphocytes # (Auto) 1.9 x10^3/uL (1.0-4.8) Monocytes # (Auto) 0.5 x10^3/uL (0.0-1.1) Eosinophils # (Auto) 0.4 x10^3/uL (0.0-0.7) Basophils # (Auto) 0.1 x10^3/uL (0.0-0.2) Platelet Estimate Adequate (ADEQUATE) Large Platelets Occ Polychromasia Slight Hypochromasia Slight Microcytosis Slight Prothrombin Time 14.6 SEC (11.7-14.0) Prothromb Time International Ratio 1.2 (0.8-1.1) Activated Partial Thromboplast Time 34 SEC (24-38) Sodium Level 140 mmol/L (136-145) Potassium Level 3.9 mmol/L (3.5-5.1) Chloride Level 105 mmol/L (98-107) Carbon Dioxide Level 26 mmol/L (21-32) Anion Gap 9 (6-14) Blood Urea Nitrogen 10 mg/dL (7-20) Creatinine 0.6 mg/dL (0.6-1.0) Estimated GFR (Cockcroft-Gault) 114.4 BUN/Creatinine Ratio 17 (6-20) Glucose Level 102 mg/dL (70-99) Calcium Level 8.8 mg/dL (8.5-10.1) Total Bilirubin 0.6 mg/dL (0.2-1.0) Aspartate Amino Transf (AST/SGOT) 34 U/L (15-37) Alanine Aminotransferase (ALT/SGPT) 55 U/L (14-59) Alkaline Phosphatase 159 U/L (46-116) Creatine Kinase 89 U/L (26-192) Creatine Kinase MB (Mass) 0.8 ng/mL (0.0-3.6) Creatine Kinase MB Relative Index 0.9 % (0-4) Troponin I Quantitative < 0.017 ng/mL (0.000-0.055) Total Protein 7.5 g/dL (6.4-8.2) Albumin 3.7 g/dL (3.4-5.0) Albumin/Globulin Ratio 1.0 (1.0-1.7) Lipase 132 U/L (73-393) Bedside Urine HCG, Qualitative Hcg negative (Negative) Urine Color Yellow Urine Clarity Clear Urine pH 6.5 Urine Specific [place] 1.020 Urine Protein Negative mg/dL (NEG-TRACE) Urine Glucose (UA) Negative mg/dL (NEG) Urine Ketones (Stick) Negative mg/dL (NEG) Urine Blood Large (NEG) Urine Nitrite Negative (NEG) Urine Bilirubin Negative (NEG) Urine Urobilinogen Dipstick 0.2 mg/dL (0.2 mg/dL) Urine Leukocyte Esterase Small (NEG) Urine RBC 6-10 /HPF (0-2) Urine WBC 1-4 /HPF (0-4) Urine Squamous Epithelial Cells Occ /LPF Urine Amorphous Sediment Present /HPF Urine Bacteria Few /HPF (0-FEW) Urine Yeast Present /HPF Brief Hospital Course Ms. Smith is a 36 old female, obese admitted for acute cholecystitis, UNderwent lap radha, tolerated procedure well. PCN allergy, WBC 11 , was getting levaquin, Will dc on POMleavquin, Ff up GS 2 weeks Pt seen and examined Dc > 30 mins in counselling, language barrier etc PRoc: lap radha Discharge Information Condition at Discharge: Improved, Stable Follow Up: Weeks (2 weeks GS) Disposition/Orders: D/C to Home Miscellaneous Medications Info (No Known Medications Prior To Admisstion), 1 EACH , (Reported) KAMILLA REIS MD Dec 26, 2016 10:03
[2016-12-26 11:00] VITALS: BP 117/58
[2016-12-26] MEDS: HYDROcodone/APAP 5/325MG 1 TAB TABLET PO PRN (12:35)
--- NOTE | 2016-12-28 15:00 | PATHOLOGY ---
PATHOLOGY REPORT * * * * * * * * FINAL DIAGNOSIS: Gallbladder, laparoscopic cholecystectomy: - Cholesterolosis, extensive. - Chronic and focal slight acute cholecystitis. COMMENT: There are no calculi identified within the gallbladder lumen or specimen container. There is no evidence of malignancy. (JPM:mgr; d/t: 12/28/2016) REPORT ELECTRONICALLY SIGNED BY: Ronnie Godoy M.D. DATE/TIME: 12/28/2016 14:59 * * * * * * * * GROSS PATHOLOGY: Received in formalin labeled "Santi Smith, gallbladder," is an 8.8 x 4.3 x 2.8 cm, intact gallbladder with dull cavazos green serosal surfaces. Opening the gallbladder reveals dark yellow green, velvety mucosa which is nearly completely covered by tom yellow striations, suggestive of cholesterolosis and an average wall thickness of 0.4 cm. Calculi are not present and no masses are noted grossly. Quality Assurance sections from the body and fundus are submitted along with the proximal margin in cassette A1. (JPM; 12/27/16) INITIAL CPT CODE(S): A; 50330 Professional services performed [place] [facility] [address] Technical services performed by [facility] at [address] [place] [address], [facility] [address] [address]. SPECIMEN(S) RECEIVED: A.Gallbladder CLINICAL HISTORY: Cholecystitis, biliary colic PATIENT: SANTI SMITH /AGE: 701/12/1980 (Age: 36) PATIENT #: [id number] ALT CASE #: SPECIMEN COLLECTION DATE: 12/25/2016 SPECIMEN RECEIVED DATE: 12/27/2016 [facility] - [id number] [place] [id number] - PHONE: [phone] * * * END OF REPORT * * *
== END 2016-12-26 14:15 | disposition home or self-care (01) | DRG 419 ==
LOC: ER 12:10 → 4 NORTH 15:25 → EDBD 15:25 → 4 NORTH 16:34
PROVIDERS: ADMIT Internal Medicine; ATTEND Internal Medicine
PROC: 0FT44ZZ Resection of Gallbladder, Percutaneous Endoscopic Approach (ICD-10-PCS; principal; 2016-12-25 10:45)
DX: K80.00 Calculus of gallbladder with acute cholecystitis without obstruction (principal); E66.9 Obesity, unspecified; Z82.49 Family history of ischemic heart disease and other diseases of the circulatory system; Z68.33 Body mass index [BMI] 33.0-33.9, adult; Z88.0 Allergy status to penicillin
CPT/HCPCS: 36415; 71010; 76705; 78226; 80053; 81001; 81025; 82553; 83690; 84484; 85007; 85027; 85610; 85730; 87086; 93005; 96365; 96374; 96375; 96376; A9537; C2617; J0330; J0690; J1100; J1885; J1956; J2250; J2405; J2704; J2710; J3010; J3490; J7030; J7120; Q9967; S0028; 99285-25

== ENCOUNTER → 2020-11-21 | Outpatient (CLI) | payer SELFPAY ==
[~2020-11-21] MED LIST: LEVO500T59 PO
== END ==
LOC: LAB 13:48
PROVIDERS: ATTEND Obstetrics & Gynecology
DX: Z01.812 Encounter for preprocedural laboratory examination (principal); D25.9 Leiomyoma of uterus, unspecified; Z20.822 Contact with and (suspected) exposure to COVID-19
CPT/HCPCS: U0003; U0005